=== PATIENT | female | born 1975 | race Caucasian/White ===

== ENCOUNTER 2017-03-06 11:16 | Emergency (ER) | payer MEDICAID ==
[2017-03-06 11:17] VITALS: BMI 20.5
[2017-03-06 11:35] VITALS: BP 148/91; PULSE 91; RESP 20; TEMP 97; O2SAT 99
[2017-03-06] MEDS ORDERED: Clindamycin 600 MG in Sodium Chloride 0.9% 100 ML IVPB ONE (11:53)
--- NOTE | 2017-03-06 11:56 | ED PDOC ---
HPI: General Adult Time Seen by Provider: 03/06/17 11:54 Chief Complaint (Nursing): Abnormal Skin Integrity Chief Complaint (Provider): facial swelling History Per: Patient (41 y/o female brought to ED for evaluation of left sided facial swelling noted today. Denies any difficulty with swallowing/fever/ chills. Patient has h/o poor dentition and has plans to see dentist soon.) Past Medical History Reviewed: Historical Data, Nursing Documentation, Vital Signs Vital Signs: Last Vital Signs Temp 97.0 F L 03/06/17 11:32 Pulse 91 H 03/06/17 11:32 Resp 20 03/06/17 11:32 BP 148/91 H 03/06/17 11:32 Pulse Ox 99 03/06/17 11:32 - Medical History PMH: Gall Bladder Disease (gallstones) - Surgical History Surgical History: Hernia Repair - Family History Family History: States: Unknown Family Hx - Immunization History Hx Tetanus Toxoid Vaccination: No Hx Influenza Vaccination: No Hx Pneumococcal Vaccination: No - Home Medications Home Medications: Ambulatory Orders Medication Instructions Recorded Clindamycin [Cleocin] 300 mg PO Q6 #28 cap 03/06/17 Naproxen [Naprosyn Tab] 375 mg PO Q8 PRN #21 tab 03/06/17 Omeprazole Magnesium [Prilosec Otc] 20 mg PO DAILY #7 tcp 03/06/17 - Allergies Allergies/Adverse Reactions: Allergies Allergy/AdvReac Type Severity Reaction Status Date / Time No Known Allergies Allergy Verified 03/06/17 11:32 Review of Systems ROS Statement: Except As Marked, All Systems Reviewed And Found Negative ENT: Positive for: Other (facial swelling/dental pain) Physical Exam - Reviewed Nursing Documentation Reviewed: Yes Vital Signs Reviewed: Yes - Physical Exam Appears: Positive for: Well, Non-toxic, No Acute Distress Head Exam: Positive for: ATRAUMATIC, NORMAL INSPECTION, NORMOCEPHALIC Skin: Positive for: Normal Color, Warm, DRY Eye Exam: Positive for: EOMI, Normal appearance, PERRL ENT: Positive for: Other. Negative for: Normal ENT Inspection (facial swelling left lower mandible; (+) swelling/fluctuance noted lower left mandible.) Neck: Positive for: Normal, Painless ROM Cardiovascular/Chest: Positive for: Regular Rate, Rhythm Respiratory: Positive for: CNT, Normal Breath Sounds Gastrointestinal/Abdominal: Positive for: Normal Exam, Bowel Sounds, Soft Back: Positive for: Normal Inspection Extremity: Positive for: Normal ROM Neurologic/Psych: Positive for: Alert, Oriented - ECG O2 Sat by Pulse Oximetry: 99 - Progress ED Course And Treament: Clindamycin 600 mg iv x 1 dose Disposition - Clinical Impression Clinical Impression: Dental abscess - Patient ED Disposition Is Patient to be Admitted: No - Disposition Referrals: Juan Carlos Jones DDS [Staff Provider] - Disposition: Routine/Home Disposition Time: 11:57 Condition: FAIR Prescriptions: Clindamycin [Cleocin] 300 mg PO Q6 #28 cap Naproxen [Naprosyn Tab] 375 mg PO Q8 PRN #21 tab PRN Reason: Pain, Severe (8-10) Omeprazole Magnesium [Prilosec Otc] 20 mg PO DAILY #7 tcp Instructions: Dental Abscess (ED) Forms: [facility] ED School/Work Excuse
== END 2017-03-06 14:00 | disposition home or self-care (01) ==
LOC: H.ER 11:16
DX: K04.7 Periapical abscess without sinus (principal)

== ENCOUNTER 2017-12-06 01:11 | Emergency (ER) | payer SELFPAY ==
[2017-12-06 01:11] VITALS: BMI 20.5
[2017-12-06 01:33] VITALS: BP 145/87; PULSE 93; RESP 16; TEMP 97.9; O2SAT 100
[2017-12-06 01:58] LABS: BASO # 0.1 K/uL (0.0-0.2); BASO % 1.3 % (0.0-2.0); EOS # 0.3 K/uL (0.0-0.7); EOS % 2.9 % (0.0-4.0); HEMOGLOBIN 9.9 g/dL (12.0-16.0); LYMPH # 2.2 K/uL (1.0-4.3); LYMPH % 23.4 % (20.0-40.0); MEAN CELL VOLUME 76.8 fl (81.0-99.0); MEAN CORPUSCULAR HEMOGLOBIN 24.5 pg (27.0-31.0); MEAN CORPUSCULAR HGB CONC 31.9 g/dL (33.0-37.0); MEAN PLATELET VOLUME 7.9 fl (7.2-11.7); MONO # 0.9 K/uL (0.0-0.8); MONO % 10.1 % (0.0-10.0); NEUT # 5.9 K/uL (1.8-7.0); NEUT % 62.3 % (50.0-75.0); RBC 4.04 Mil/uL (3.80-5.20); RED CELL DISTRIBUTION WIDTH 15.6 % (11.5-14.5); WHITE BLOOD COUNT 9.4 K/uL (4.8-10.8)
[2017-12-06 02:09] LABS: BLOOD UREA NITROGEN 13 mg/dl (7-17); CALCIUM 8.8 mg/dL (8.4-10.2); GFR AFRICAN-AMERICAN > 60; GFR NON-AFRICAN AMERICAN > 60
--- NOTE | 2017-12-06 02:14 | ED PDOC ---
HPI: Chest Pain Time Seen by Provider: 12/06/17 01:37 Chief Complaint (Nursing): Chest Pain Additional Complaint(s): 42 y/o male present to the ED for evaluation of chest pain. 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 States that the pain comes and goes and is non radiating. Denies associated shortness of breath or any further medical complaints. PMD: Dr. Thomas Past Medical History Reviewed: Historical Data, Nursing Documentation, Vital Signs Vital Signs: Last Vital Signs Temp 97.9 F 12/06/17 01:28 Pulse 93 H 12/06/17 01:28 Resp 16 12/06/17 01:28 BP 145/87 12/06/17 01:28 Pulse Ox 100 12/06/17 19:40 - Medical History PMH: Gall Bladder Disease (gallstones) - Surgical History Surgical History: Hernia Repair - Family History Family History: States: Unknown Family Hx - Social History Current smoker - smoking cessation education provided: No Alcohol: Social Drugs: Denies - Immunization History Hx Tetanus Toxoid Vaccination: No Hx Influenza Vaccination: No Hx Pneumococcal Vaccination: No - Home Medications Home Medications: Ambulatory Orders Medication Instructions Recorded Clindamycin [Cleocin] 300 mg PO Q6 #28 cap 03/06/17 Naproxen [Naprosyn Tab] 375 mg PO Q8 PRN #21 tab 03/06/17 Omeprazole Magnesium [Prilosec Otc] 20 mg PO DAILY #7 tcp 03/06/17 Ibuprofen [Motrin Tab] 600 mg PO Q6 #30 tab 12/06/17 - Allergies Allergies/Adverse Reactions: Allergies Allergy/AdvReac Type Severity Reaction Status Date / Time No Known Allergies Allergy Verified 12/06/17 01:28 Review of Systems ROS Statement: Except As Marked, All Systems Reviewed And Found Negative (As per HPI, otherwise negative) Cardiovascular: Positive for: Chest Pain Respiratory: Negative for: Shortness of Breath Physical Exam - Reviewed Nursing Documentation Reviewed: Yes Vital Signs Reviewed: Yes - Physical Exam Appears: Positive for: Well, Non-toxic, No Acute Distress Head Exam: Positive for: ATRAUMATIC, NORMAL INSPECTION, NORMOCEPHALIC Skin: Positive for: Normal Color, Warm, Dry Eye Exam: Positive for: EOMI, Normal appearance, PERRL ENT: Positive for: Normal ENT Inspection Neck: Positive for: Normal, Painless ROM, Supple Cardiovascular/Chest: Positive for: Regular Rate, Rhythm. Negative for: Murmur Respiratory: Positive for: Normal Breath Sounds. Negative for: Accessory Muscle Use, Respiratory Distress Gastrointestinal/Abdominal: Positive for: Normal Exam, Bowel Sounds, Soft. Negative for: Tenderness Back: Positive for: Normal Inspection Extremity: Positive for: Normal ROM. Negative for: Deformity Neurologic/Psych: Positive for: Alert, Oriented (x3) - Laboratory Results Result Diagrams: 12/06/17 01:45 12/06/17 01:45 - ECG O2 Sat by Pulse Oximetry: 100 (RA) Pulse Ox Interpretation: Normal Medical Decision Making Medical Decision Making: Time: 01:42 Initial Impression: Musculoskeletal chest pain likely non cardiac Plan: EKG BMP Troponin I Chest x-ray Ibuprofen 600mg PO Team Supervisor Reevaluation 130 Patient is feeling better, will discharge home. Return precautions discussed. Scribe Attestation: Documented by Sebastian Chris acting as a scribe for Александр Park MD. Scribe Attestation: All medical record entries made by the Scribe were at my direction and personally dictated by me. I have reviewed the chart and agree that the record accurately reflects my personal performance of the history, physical exam, medical decision making, and the department course for this patient. I have also personally directed, reviewed, and agree with the discharge instructions and disposition. Disposition - Clinical Impression Clinical Impression: Chest wall pain - Disposition Referrals: [facility] [Outside] Disposition: Routine/Home Disposition Time: 01:30 Condition: IMPROVED Prescriptions: Ibuprofen [Motrin Tab] 600 mg PO Q6 #30 tab Instructions: Chest Pain That Is Not Caused by the Heart (DC) Forms: [employer] (Thai)
--- NOTE | 2017-12-06 08:02 | RAD ---
HISTORY: cp COMPARISON: No prior. TECHNIQUE: Chest PA and lateral FINDINGS: LUNGS: No active pulmonary disease. PLEURA: No significant pleural effusion identified. No pneumothorax apparent. CARDIOVASCULAR: Normal. OSSEOUS STRUCTURES: No significant abnormalities. VISUALIZED UPPER ABDOMEN: Normal. OTHER FINDINGS: None. IMPRESSION: No active disease.
--- NOTE | 2017-12-08 09:04 | CARD ---
APPROVED REPORT EKG Measurement Heart [id number] <Conclusion> Normal sinus rhythm Nonspecific ST and T wave abnormality Abnormal ECG
== END 2017-12-06 02:50 | disposition home or self-care (01) ==
LOC: H.ER 01:11
DX: R07.89 Other chest pain (principal)

== ENCOUNTER 2018-05-11 19:54 | Emergency (ER) | payer BC ==
[2018-05-11 19:54] VITALS: BMI 20.5
[2018-05-11 20:40] VITALS: BP 159/97; PULSE 78; RESP 18; TEMP 98; O2SAT 99
[2018-05-11] MEDS ORDERED: Silver Sulfadiazine 1% Cream (20 gm) TOP STA (21:21)
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
== END 2018-05-11 23:00 | disposition home or self-care (01) ==
LOC: H.ER 19:54
DX: T24.032A Burn of unspecified degree of left lower leg, initial encounter (principal)

== ENCOUNTER 2018-05-13 12:21 | Emergency (ER) | payer BC ==
[2018-05-13 12:21] VITALS: BMI 20.5
[2018-05-13] MEDS ORDERED: Sodium Chloride 0.9% 1,000 ML IV STA (12:57)
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
[2018-05-13 13:34] LABS: BASO # 0.1 K/uL (0.0-0.2); BASO % 0.5 % (0.0-2.0); EOS % 0.2 % (0.0-4.0); LYMPH # 0.7 K/uL (1.0-4.3); LYMPH % 6.7 % (20.0-40.0); MEAN CELL VOLUME 83.8 fl (81.0-99.0); MEAN CORPUSCULAR HEMOGLOBIN 27.7 pg (27.0-31.0); MEAN CORPUSCULAR HGB CONC 33.1 g/dL (33.0-37.0); MEAN PLATELET VOLUME 8.5 fl (7.2-11.7); MONO # 0.3 K/uL (0.0-0.8); MONO % 3.1 % (0.0-10.0); NEUT # 9.5 K/uL (1.8-7.0); NEUT % 89.5 % (50.0-75.0); PLATELET COUNT 293 K/uL (130-400); RBC 4.35 Mil/uL (3.80-5.20); RED CELL DISTRIBUTION WIDTH 14.3 % (11.5-14.5); WHITE BLOOD COUNT 10.6 K/uL (4.8-10.8)
[2018-05-13 13:51] LABS: ALB/GLOB RATIO 1.1 (1.0-2.1); ALBUMIN 4.6 g/dL (3.5-5.0); ALT/SGPT 24 U/L (9-52); AST/SGOT 28 U/L (14-36); BLOOD UREA NITROGEN 12 mg/dl (7-17); CALCIUM 8.7 mg/dL (8.4-10.2); GFR AFRICAN-AMERICAN > 60; GFR NON-AFRICAN AMERICAN > 60
[2018-05-13 14:17] VITALS: BP 133/84; PULSE 68; RESP 16; TEMP 97.8; O2SAT 100
[2018-05-13 14:53] LABS: BASOPHIL 1 % (0-2); LYMPHOCYTE 5 % (20-50); MONOCYTE 2 % (0-10); NEUTROPHIL 92 % (42-75); PLATELET ESTIMATE NORMAL (NORMAL); TOTAL CELLS COUNTED 100
== END 2018-05-13 14:17 | disposition home or self-care (01) ==
LOC: H.ER 12:21
DX: K29.70 Gastritis, unspecified, without bleeding (principal)
CPT/HCPCS: 80053; 81025; 85025; 96374; 99284; J2405; J7030